=== PATIENT | female | born 2000 | race Caucasian/White ===

== ENCOUNTER → 2020-12-30 16:18 | Outpatient (BNVA) | payer OTHER, SELFPAY | PROVIDERS: Family Provider Nurse Practitioner Family; Visit Provider Emergency Medicine | DX: Z20.822 Contact with and (suspected) exposure to COVID-19 (principal); Z03.818 Encounter for observation for suspected exposure to other biological agents ruled out | CPT/HCPCS: 87635 ==

== ENCOUNTER 2021-01-04 10:32 | Emergency (ER) | payer MEDICAID, SELFPAY ==
[2021-01-04] VITALS (7 sets, daily range): BP systolic 112–123; BP diastolic 77–87; PULSE 85–127; RESP 16–18; TEMP 36.6–36.8; O2SAT 97–99; BMI 23.5
--- NOTE | 2021-01-04 10:47 | ED_ITS ---
HPI - General: Chief complaint: Vaginal Bleeding Stated complaint: EXCESSIVE VAGINAL BLEEDING, SUSPECTS MISCARRIAGE Time Seen by Provider: 01/04/21 10:41 History of Present Illness: HPI Narrative: 20 yo female arrives a chief complaint of vaginal bleeding. She had a light period in November and now is having what seems to be an extremely heavy period for her. She has not had any breast tenderness or swelling. She is taking tests which were negative. MD Complaint: vaginal bleeding Onset (ago): hour(s) Pain Consistency: intermittent Location: pelvis Severity: mild Quality: Cramping Relieving factors: none Exacerbating factors: none Vaginal bleeding: heavy Associated symptoms: Reports vaginal bleeding; Deny no associated symptoms, abdominal pain, dyspareunia, dysuria, headache(s), malaise, nausea, rash, seizures, short of breath, syncope, vaginal discharge, visual changes, vomiting or weakness Review of Systems Const: Denies: malaise ENMT: Denies: throat pain, ear or mastoid pain, nasal discharge or nasal congestion Card: Denies: syncope Resp: Denies: dyspnea, productive cough or non-productive cough GI: Denies: abdominal pain, nausea or vomiting : Denies: dysuria, vaginal discharge or dyspareunia Skin/Breast: Denies: rash or pruritus Neuro: Denies: headache(s) PFSH ED PFSH: Social History Smoking and tobacco status: never smoked Alcohol intake: never Physical Exam Const: COMMON NORMALS: no acute distress GENERAL APPEARANCE: cooperative and comfortable ORIENTATION/CONSCIOUSNESS: Yes awake, Yes oriented to person, Yes oriented to place and Yes oriented to time HENMT: COMMON NORMALS: normocephalic, atraumatic and hearing grossly normal bilaterally HEAD & SCALP: normocephalic and atraumatic Neck/C-Spine: COMMON NORMALS: no JVD Resp: COMMON NORMALS: normal respiratory effort, No retractions, No use of accessory muscles and clear to auscultation bilaterally AUSCULTATION: clear to auscultation bilaterally Cardio: COMMON NORMALS: no JVD, regular rate, regular rhythm and No murmurs present (Cardio) RATE: regular rate RHYTHM: regular rhythm GI: COMMON NORMALS: Soft to palpation and No hepatosplenomegaly present A USCULTATION: Yes normoactive bowel sounds PALPATION: Yes Soft to palpation, No Tenderness to palpation present (GI), No Guarding due to palpation present (GI) and Yes No hepatosplenomegaly present : SPECULUM EXAM - VAGINA: Yes vaginal bleeding OB/EXTERNAL & SPECULUM: vaginal bleeding Extremity: COMMON NORMALS: normal to inspection, capillary refill normal, no clubbing, cyanosis or edema, no calf tenderness and no pedal edema Neuro: SENSORIUM/ORIENTATION: Yes oriented to person, Yes oriented to place and Yes oriented to time Skin: COMMON NORMALS: no rashes or lesions noted GENERAL SKIN EXAM: no rashes or lesions noted Course Vital Signs: Vital signs: Vital Signs Temperature 97.9 F 01/04/21 13:07 Pulse Rate 86 01/04/21 13:07 Respiratory Rate 18 01/04/21 13:07 Blood Pressure 112/77 01/04/21 13:07 Pulse Oximetry 98 01/04/21 13:07 MDM - OB/Uterine Contractions MDM Narrative: Medical decision making narrative: Beta-hCG 0.5. We will put the patient on medroxyprogesterone withdrawal bleed did advise her that when she finishes the production prasterone she will start bleeding again fairly heavily. If bleeding is not stopped in the next couple days or becomes increased recheck. Lab Data: Labs: Lab Results 01/04/21 01/04/21 01/04/21 Range/Units 11:12 11:12 11:12 WBC 5.8 (4.0-10.0) 10^3/ uL RBC 5.21 (4.1-5.3) 10^6/u L Hgb 12.6 (11.5-15.3) g/dL Hct 41.0 (37.0-47.0) % MCV 78.7 L (81-99) fL MCH 24.2 L (28.0-34.0) pg MCHC 30.7 (30.0-36.0) g/dL RDW 13.0 (12.1-15.1) % Plt Count 235 (130-400) 10^3/c mm MPV 11.8 H (7.4-10.4) fL Neut % (Auto) 59.0 % Lymph % (Auto) 30.3 % [place] % (Auto) 6.6 % Eos % (Auto) 3.4 % Baso % (Auto) 0.2 % Neut # (Auto) 3.42 (1.8-7.7) 10^3/u L Lymph # (Auto) 1.8 (0.8-4.8) 10^3/u L [place] # (Auto) 0.4 (0.2-0.9) 10^3/u L Eos # (Auto) 0.2 (0.0-0.8) 10^3/u L Baso # (Auto) 0.0 (0.0-0.1) 10^3/u L Nucleated RBC % (a uto) 0 % Nucleated RBCs # 0.0 /100WBC Sodium 138 (136-145) mmol/L Potassium 3.8 (3.5-5.1) mmol/L Chloride 105 (98-107) mmol/L Carbon Dioxide 23 (22-29) mmol/L Anion Gap 13.8 (5-19) BUN 13 (6-20) mg/dL Creatinine 1.0 H (0.5-0.9) mg/dL GFR Calculation 69.3 L (90-130) mL/min Glucose 88 (65-115) mg/dL Calculated Osmolal ity 286 (285-295) mOsm/k g Calcium 9.0 (8.5-10.5) mg/dL Total Bilirubin 0.3 (0.15-1.2) mg/dL AST 17 (0-32) U/L ALT 16 (0-33) U/L Alkaline Phosphata se 54 (35-105) IU/L Total Protein 7.3 (6.6-8.7) g/dL Albumin 4.3 (3.5-5.2) g/dL Globulin 3.0 (1.3-4.6) g/dL Ser , Lesvia i-Qnt 0.50 mIU/mL Urine Color (Yellow) Urine Appearance (CLEAR) Urine pH (5-7) Ur Specific Gravit y (1.005-1.030) Urine Protein (Negative) Urine Glucose (UA) (Normal) Urine Ketones (Negative) Urine Blood (Negative) Urine Nitrate (Negative) Urine Bilirubin (Negative) Urine Urobilinogen (Negative) mg/dL Ur Leukocyte Rosalba ase (Negative) Urine RBC (0-2) /hpf Urine WBC (0-5) /hpf Ur Squamous Epith Cells (0-5) /hpf Amorphous Sediment Urine Bacteria (NONE) /hpf Urine Mucus /hpf Blood Type A Negative Rho(D) Type Negative 01/04/21 Range/Units 11:55 WBC (4.0-10.0) 10^3/ uL RBC (4.1-5.3) 10^6/u L Hgb (11.5-15.3) g/dL Hct (37.0-47.0) % MCV (81-99) fL MCH (28.0-34.0) pg MCHC (30.0-36.0) g/dL RDW (12.1-15.1) % Plt Count (130-400) 10^3/c mm MPV (7.4-10.4) fL Neut % (Auto) % Lymph % (Auto) % [place] % (Auto) % Eos % (Auto) % Baso % (Auto) % Neut # (Auto) (1.8-7.7) 10^3/u L Lymph # (Auto) (0.8-4.8) 10^3/u L [place] # (Auto) (0.2-0.9) 10^3/u L Eos # (Auto) (0.0-0.8) 10^3/u L Baso # (Auto) (0.0-0.1) 10^3/u L Nucleated RBC % (a uto) % Nucleated RBCs # /100WBC Sodium (136-145) mmol/L Potassium (3.5-5.1) mmol/L Chloride (98-107) mmol/L Carbon Dioxide (22-29) mmol/L Anion Gap (5-19) BUN (6-20) mg/dL Creatinine (0.5-0.9) mg/dL GFR Calculation (90-130) mL/min Glucose (65-115) mg/dL Calculated Osmolal ity (285-295) mOsm/k g Calcium (8.5-10.5) mg/dL Total Bilirubin (0.15-1.2) mg/dL AST (0-32) U/L ALT (0-33) U/L Alkaline Phosphata se (35-105) IU/L Total Protein (6.6-8.7) g/dL Albumin (3.5-5.2) g/dL Globulin (1.3-4.6) g/dL Ser , Lesvia i-Qnt mIU/mL Urine Color Yellow (Yellow) Urine Appearance Clear (CLEAR) Urine pH 5 (5-7) Ur Specific Gravit y 1.025 (1.005-1.030) Urine Protein Trace (Negative) Urine Glucose (UA) Norm (Normal) Urine Ketones Negative (Negative) Urine Blood 2+ H (Negative) Urine Nitrate Negative (Negative) Urine Bilirubin Neg (Negative) Urine Urobilinogen Norm (Negative) mg/dL Ur Leukocyte Rosalba ase Negative (Negative) Urine RBC 0-4 H (0-2) /hpf Urine WBC 0-4 H (0-5) /hpf Ur Squamous Epith Cells 5-10 H (0-5) /hpf Amorphous Sediment Not Reportable Urine Bacteria Trace (NONE) /hpf Urine Mucus 1+ /hpf Blood Type Rho(D) Type Discharge Plan Discharge Patient Disposition: Home Clinical Impression: Menometrorrhagia Condition: Stable Prescriptions: New medroxyprogesterone 10 mg tablet 10 mg PO DAILY 10 Days RF: 0 No Action IBU 800 mg tablet 800 mg PO TID PRN (Reason: pain) Qty: 30 RF: 0 Discharge Orders: Discharge ED (Routine); Ordered 01/04/21 Ordered By: Chi Padilla Discharge Diet: Usual diet Discharge Activity: Increase activity as tolerated Activity Restrictions/Additional Instructions: Check with your primary care doctor next week if not improving. Turn if further problems. Coding Level of Care Code ED Athletic Equipment Manager for Rica Ramon
[2021-01-04 11:25] LABS: Basophils % 0.2 %; Eosinophils # 0.2 10^3/uL (0.0-0.8); Eosinophils % 3.4 %; Hemoglobin 12.6 g/dL (11.5-15.3); Lymphocytes # 1.8 10^3/uL (0.8-4.8); Lymphocytes % 30.3 %; Mean Corpuscular HGB Conc 30.7 g/dL (30.0-36.0); Mean Corpuscular Hemoglobin 24.2 pg (28.0-34.0); Mean Corpuscular Volume 78.7 fL (81-99); Mean Platelet Volume 11.8 fL (7.4-10.4); Monocytes # 0.4 10^3/uL (0.2-0.9); Monocytes % 6.6 %; Neutrophils # 3.42 10^3/uL (1.8-7.7); Nucleated Red Blood Cells % 0 %; Platelet Count 235 10^3/cmm (130-400); Red Blood Count 5.21 10^6/uL (4.1-5.3); White Blood Count 5.8 10^3/uL (4.0-10.0)
[2021-01-04 12:06] LABS: Alanine Aminotransferase 16 U/L (0-33); Albumin Level 4.3 g/dL (3.5-5.2); Alkaline Phosphatase 54 IU/L (35-105); Anion Gap 13.8 (5-19); Aspartate Amino Transferase 17 U/L (0-32); Blood Urea Nitrogen 13 mg/dL (6-20); Carbon Dioxide 23 mmol/L (22-29); Chloride 105 mmol/L (98-107); Glomerular Filtration Rate 69.3 mL/min (90-130); Glucose 88 mg/dL (65-115); Osmolality Calculated 286 mOsm/kg (285-295); Potassium 3.8 mmol/L (3.5-5.1); Sodium 138 mmol/L (136-145); Total Bilirubin 0.3 mg/dL (0.15-1.2); Total Protein 7.3 g/dL (6.6-8.7)
[2021-01-04 12:14] LABS: Add Urine Microscopic? YES; Bilirubin Urine Neg (Negative); Blood Urine 2+ (Negative); Glucose Urine UA Norm (Normal); Ketones Urine Negative (Negative); Leukocyte Esterase Urine Negative (Negative); Nitrate Urine Negative (Negative); Protein Urine Trace (Negative); Specific Gravity, Urine 1.025 (1.005-1.030); Urine Appearance Clear (CLEAR); Urine Color Yellow (Yellow); Urobilinogen Urine Norm (Negative); pH Urine 5 (5-7)
[2021-01-04 12:15] LABS: Bacteria Urine TRACE /hpf; Mucus Urine 1+ /hpf
[2021-01-04 12:17] LABS: Add Urine Culture? No; RBC Urine 0-4 /hpf (0-2); WBC Urine 0-4 /hpf (0-5)
== END 2021-01-04 13:11 | disposition home or self-care (01) ==
PROVIDERS: Emergency Provider Family Medicine
DX: N92.1 Excessive and frequent menstruation with irregular cycle (principal)
CPT/HCPCS: 12345; 80053; 81001; 84702; 85025; 86900; 99283

== ENCOUNTER 2021-01-04 21:58 | Emergency (ER) | payer MEDICAID, SELFPAY ==
[2021-01-04 22:02] VITALS: BP 153/96; PULSE 92; RESP 15; TEMP 36.4; BMI 24.2
--- NOTE | 2021-01-04 22:41 | ED_ITS ---
HPI - Female Genitourinary General: Chief complaint: Vaginal Bleeding Stated complaint: covid +/ here for vaginal bleeding Time Seen by Provider: 01/04/21 22:12 Source: patient Mode of arrival: ambulatory Limitations: no limitations History of Present Illness: HPI Narrative: 20-year-old female patient presents to the emergency department with complaints of continued menorrhagia and dysmenorrhea. She was seen in the emergency department earlier today, diagnosed with menorrhagia, medroxyprogesterone prescribed, she states has not taken medication. She reports copper IUD placement while in [place] approximately 1 year ago. States has made a follow-up appointment with [facility] [employer], appointment is scheduled for next Thursday. She reports continued bleeding, states going through 3-4 pads an hour, states also bleeding through tampons. Last menstrual period; today, previous menstrual period 12/14/2020; she reports has never experienced irregular menstrual cycles in the past. She reports family history, her mother and sister with endometriosis. MD elicited complaint: vaginal bleeding Pertinent past history: IUD Onset (ago): day(s) (1) Location of symptoms: suprapubic Severity: severe Female Urogenital Radiation: Suprapubic Severity scale (1-10): 7 Quality of pain: cramping Consistency: intermittent and progressively worsening Vaginal bleeding: # pads per hour (3-4) Associated symptoms: Reports no associated symptoms; Deny abdominal pain, headache(s) or nausea Sexual activity: Yes Patient : No Date of Last Menstrual Period: 01/04/21 Review of Systems General: Reports: 10 or more systems reviewed and unremarkable except in HPI and below Const: Denies: fever(s), chills or diaphoresis Eyes: Denies: blurry vision or eye redness ENMT: Denies: throat pain, dental pain or disequilibrium Card: Denies: chest pain, palpitations or irregular heart rhythm Resp: Denies: dyspnea, productive cough, non-productive cough or wheezing GI: Denies: abdominal pain, nausea or vomiting : Reports: vaginal bleeding, dysmenorrhea, irregular period and change in menstrual flow; Denies: difficulty voiding, dysuria, urinary urgency or urinary hesitancy Musc: Denies: neck pain, back pain, joint pain, joint stiffness or muscle weakness Skin/Breast: Denies: rash or pruritus Neuro: Denies: headache(s), weakness in extremities or behavioral changes Psych: Denies: anxiety, depression, sleeping more or irritability Oscar/Lymph: Denies: easy bruising PFSH ED PFSH: Social History Smoking and tobacco status: never smoked Alcohol intake: never Female Reproductive History: Date of last menstrual period: 01/04/21 Physical Exam Const: COMMON NORMALS: no acute distress, patient oriented x3, healthy appearing, alert and well nourished GENERAL APPEARANCE: cooperative, comfortable, well kempt, well developed and well hydrated NUTRITIONAL APPEARANCE: thin ORIENTATION/CONSCIOUSNESS: Yes awake, Yes oriented to person, Yes oriented to place and Yes oriented to time HENMT: COMMON NORMALS: normocephalic, Normal external nose present and moist oral mucous membranes HEAD & SCALP: normocephalic NOSE: Normal external nose present Eye: COMMON NORMALS: Equal, round and reactive pupils present and EOMs intact bilaterally GENERAL EYE: appearance normal, both eyes and all related structures PUPIL: Yes Equal, round and reactive pupils present Neck/C-Spine: COMMON NORMALS: full ROM and no lymphadenopathy GENERAL: Yes normal visual inspection and Yes trachea midline CERVICAL SPINE: Yes cervical ROM normal Lymph: LYMPHATIC: no lymphadenopathy noted Chest: COMMONS NORMALS: normal inspection of the chest and normal palpation of entire chest wall Resp: COMMON NORMALS: normal respiratory effort, No retractions and clear to auscultation bilaterally EFFORT & INSPECTION: Yes able to speak in complete sentences, No labored, No Actively coughing and No audible wheezes AUSCULTATION: clear to auscultation bilaterally Cardio: COMMON NORMALS: regular rate, regular rhythm, S1 normal heart sound present, S2 normal heart sound present and Peripheral pulses 2+ throughout RATE: regular rate RHYTHM: regular rhythm HEART SOUNDS: S1 normal heart sound present and S2 normal heart sound present PERIPHERAL PULSES: Peripheral pulses 2+ throughout GI: COMMON NORMALS: Normal to inspection, nondistended, normoactive bowel sounds present, Soft to palpation and non-tender INSPECTION: Yes normal to inspection, No abdominal wall ecchymosis and No central obesity PALPATION: Yes Soft to palpation RECTAL EXAM: other (Tenderness over suprapubic area) : COMMON NORMALS: Yes no CVA tenderness BLADDER/KIDNEY EXAM: Yes no CVA tenderness Back/Pelvis: COMMON NORMALS: no CVA tenderness and thoracic and lumbar spine normal to inspection Extremity: COMMON NORMALS: normal to inspection and capillary refill normal Neuro: COMMON NORMALS: patient oriented x3 and no focal motor deficits SENSORIUM/ORIENTATION: Yes alert, Yes oriented to person, Yes oriented to place and Yes oriented to time Psych: COMMON NORMALS: mental status grossly normal, Normal thought process present and cooperative APPEARANCE: Yes well kempt ACTIVITY/MOTOR BEHAVIOR: Yes appropriate eye contact THOUGHT PROCESS: Normal thought process present Skin: COMMON NORMALS: no rashes or lesions noted and turgor normal GENERAL SKIN EXAM: no rashes or lesions noted and turgor normal Course Vital Signs: Vital signs: Vital Signs Temperature 97.6 F 01/04/21 22:02 Pulse Rate 86 01/05/21 00:46 Respiratory Rate 18 01/05/21 00:46 Blood Pressure 117/76 01/05/21 00:46 Pulse Oximetry 99 01/05/21 00:46 MDM - Female MDM Narrative: Medical decision making narrative: 20-year-old female patient presents to the emergency department with same complaint she reported earlier in the day. She continues with vaginal bleeding, has not increased. Reports started her menstrual cycle today, concern was menstrual cycles have never been abnormal nor irregular. She reported family history of endometriosis, her mother. She has upcoming appointment with gynecology next week. Hemoglobin remained stable, orthostatic vital signs slightly positive with heart rate increased slightly upon standing. 1 L of saline was administered, progesterone p.o. administered for vaginal bleeding. Coags within normal limits, hCG noted to be negative from earlier visit. I discussed possibility of endometriosis - advised progesterone will help with bleeding, ibuprofen did help with menstrual pain with prescription provided. Lab Data: Labs: Lab Results 01/04/21 01/04/21 Range/Units 22:30 22:30 WBC 6.2 (4.0-10.0) 10^3/ uL RBC 5.08 (4.1-5.3) 10^6/u L Hgb 12.2 (11.5-15.3) g/dL Hct 39.8 (37.0-47.0) % MCV 78.3 L (81-99) fL MCH 24.0 L (28.0-34.0) pg MCHC 30.7 (30.0-36.0) g/dL RDW 13.0 (12.1-15.1) % Plt Count 249 (130-400) 10^3/c mm MPV 11.8 H (7.4-10.4) fL Neut % (Auto) 42.4 % Lymph % (Auto) 46.3 % [place] % (Auto) 6.8 % Eos % (Auto) 4.1 % Baso % (Auto) 0.2 % Neut # (Auto) 2.61 (1.8-7.7) 10^3/u L Lymph # (Auto) 2.9 (0.8-4.8) 10^3/u L [place] # (Auto) 0.4 (0.2-0.9) 10^3/u L Eos # (Auto) 0.3 (0.0-0.8) 10^3/u L Baso # (Auto) 0.0 (0.0-0.1) 10^3/u L Nucleated RBC % (a uto) 0 % Nucleated RBCs # 0.0 /100WBC PT 13.30 (12.1-14.9) SECO NDS INR 0.98 (0.8-1.2) APTT 29.7 (23.9-36.7) SECO NDS Discharge Plan Discharge Patient Disposition: Home Clinical Impression: Menometrorrhagia, Dysmenorrhea Condition: Stable Prescriptions: New IBU 800 mg tablet 800 mg PO TID PRN (Reason: pain) Qty: 30 RF: 0 No Action medroxyprogesterone 10 mg tablet 10 mg PO DAILY 10 Days RF: 0 Discharge Orders: Discharge ED (Routine); Ordered 01/04/21 Ordered By: Jasmina Maya Discharge Diet: Usual diet Discharge Activity: Resume usual activity Patient Instructions: Dysmenorrhea (ED), Abdominal Pain (ED), Menorrhagia (ED) Activity Restrictions/Additional Instructions: Follow-up with your electrical plumbing supervisor next week as scheduled Continue progesterone as prescribed for 10 days Return to the emergency department if you develop lightheadedness, increased b leeding, feeling you are going to pass out Push fluids, stay hydrated Coding Level of Care Code ED Side Show Entertainer for Chg Fwd Exam Comprehensive
[2021-01-04 22:44] LABS: Basophils % 0.2 %; Eosinophils # 0.3 10^3/uL (0.0-0.8); Eosinophils % 4.1 %; Hematocrit 39.8 % (37.0-47.0); Hemoglobin 12.2 g/dL (11.5-15.3); Lymphocytes # 2.9 10^3/uL (0.8-4.8); Lymphocytes % 46.3 %; Mean Corpuscular HGB Conc 30.7 g/dL (30.0-36.0); Mean Corpuscular Volume 78.3 fL (81-99); Mean Platelet Volume 11.8 fL (7.4-10.4); Monocytes # 0.4 10^3/uL (0.2-0.9); Monocytes % 6.8 %; Neutrophils # 2.61 10^3/uL (1.8-7.7); Neutrophils % 42.4 %; Nucleated Red Blood Cells % 0 %; Platelet Count 249 10^3/cmm (130-400); Red Blood Count 5.08 10^6/uL (4.1-5.3); White Blood Count 6.2 10^3/uL (4.0-10.0)
[2021-01-04 23:06] LABS: INR 0.98 (0.8-1.2)
[2021-01-04 23:07] LABS: Partial Thromboplastin Time 29.7 SECONDS (23.9-36.7)
[2021-01-04] MEDS: ibuprofen 800 mg tablet PO (23:11)
[2021-01-04] MEDS: medroxyprogesterone 2.5 mg Tablet 10 MG PO (23:44)
[2021-01-04 23:45] VITALS: BP 104/61; BP 106/71; BP 113/75; PULSE 109; PULSE 79; PULSE 87
[2021-01-05] MEDS: sodium chloride 0.9% 500 ML 999 ML IV (00:10)
[2021-01-05 00:46] VITALS: BP 117/76; PULSE 86; RESP 18; O2SAT 99
== END 2021-01-05 00:46 | disposition home or self-care (01) ==
PROVIDERS: Emergency Provider Nurse Practitioner Family
DX: N92.1 Excessive and frequent menstruation with irregular cycle (principal); N94.6 Dysmenorrhea, unspecified
CPT/HCPCS: 12345; 85025; 85610; 85730; 96360; 99281; 99283; J7040

== ENCOUNTER 2021-07-13 12:40 | Outpatient (CLI) | payer MEDICAID, SELFPAY ==
[2021-07-13] VITALS (11 sets, daily range): BP systolic 104–115; BP diastolic 56–73; PULSE 77–100; RESP 16; TEMP 36.5; BMI 26.9
[2021-07-13] MEDS: acetaminophen 325 mg Tablet 650 MG PO (13:32)
[2021-07-13 14:32] LABS: Bilirubin Urine Neg (Negative); Blood Urine 3+ (Negative); Glucose Urine UA Norm (Normal); Ketones Urine Negative (Negative); Nitrate Urine Negative (Negative); Protein Urine Neg (Negative); Urine Appearance Clear (CLEAR); Urine Color Straw (Yellow); pH Urine 5 (5-7)
[2021-07-13 14:33] LABS: Bacteria Urine TRACE /hpf; Leukocyte Esterase Urine Negative (Negative); Squamous Epithelial Cell Urine 0-4 /hpf (0-5); Urobilinogen Urine Norm (Negative); WBC Urine RARE /hpf (0-5)
[2021-07-13 14:34] LABS: Add Urine Culture? Yes
== END 2021-07-13 15:15 | disposition home or self-care (01) ==
LOC: OPOB 12:45 → OBGYN 12:46
PROVIDERS: Visit Provider Family Medicine
DX: O46.90 Antepartum hemorrhage, unspecified, unspecified trimester (principal); Z3A.00 Weeks of gestation of pregnancy not specified; R10.9 Unspecified abdominal pain
CPT/HCPCS: 81001; 87086; 99211

== ENCOUNTER 2021-10-14 18:25 | Outpatient (CLI) | payer MEDICAID, SELFPAY ==
[2021-10-14 19:06] VITALS: BP 115/52; PULSE 95
[2021-10-14 19:19] VITALS: BMI 30.7
[2021-10-14 19:21] VITALS: RESP 16
[2021-10-14 19:26] VITALS: BP 92/50; PULSE 95
[2021-10-14 19:31] VITALS: BP 92/50; PULSE 95; RESP 16
[2021-10-14] MEDS: cyclobenzaprine 10 mg Tablet PO (19:39)
[2021-10-14] MEDS: HYDROcodone-acetaminophen 5-325 mg Tablet 2 TAB PO (19:39)
== END 2021-10-14 19:50 | disposition home or self-care (01) ==
LOC: OPOB 18:33 → OBGYN 18:34
PROVIDERS: Visit Provider Family Medicine
DX: O99.891 Other specified diseases and conditions complicating pregnancy (principal); M53.3 Sacrococcygeal disorders, not elsewhere classified
CPT/HCPCS: 59025; 99211

== ENCOUNTER 2021-11-08 19:55 | Inpatient (IN) | payer MEDICAID, SELFPAY ==
[2021-11-08 20:26] VITALS: BP 111/61; PULSE 93
[2021-11-08 20:52] VITALS: BMI 30.7
[2021-11-08 21:13] LABS: Basophils % 0.2 %; Eosinophils # 0.1 10^3/uL (0.0-0.8); Eosinophils % 0.5 %; Hematocrit 32.1 % (37.0-47.0); Lymphocytes # 2.4 10^3/uL (0.8-4.8); Lymphocytes % 20.9 %; Mean Corpuscular HGB Conc 31.2 g/dL (30.0-36.0); Mean Corpuscular Hemoglobin 23.9 pg (28.0-34.0); Mean Corpuscular Volume 76.8 fl (81-99); Mean Platelet Volume 12.8 fL (7.4-10.4); Monocytes # 0.7 10^3/uL (0.2-0.9); Monocytes % 5.9 %; Neutrophils # 8.14 10^3/uL (1.8-7.7); Nucleated Red Blood Cells % 0.2 %; Platelet Count 189 10^3/cmm (130-400); Red Blood Count 4.18 10^6/uL (4.1-5.3); Red Cell Distribution Width 14.3 % (12.1-15.1); White Blood Count 11.3 10^3/uL (4.0-10.0)
[2021-11-08] MEDS: miSOPROStol 100 mcg tablet 25 MCG VAGINAL (21:45)
[2021-11-08 22:22] VITALS: BP 115/69; PULSE 100
[2021-11-09] VITALS (101 sets, daily range): BP systolic 94–142; BP diastolic 53–84; PULSE 69–226; RESP 15–18; TEMP 36.4–36.9; O2SAT 84–100
[2021-11-09] MEDS: fentaNYL 50 mcg/mL INJ 2mL IVP ×4 (03:07→10:39)
[2021-11-09] MEDS: lactated ringers 1,000 ML 999 ML IV ×3 (03:29→10:46)
--- NOTE | 2021-11-09 08:14 | P.ANESASSM_ITS ---
Pre-Anesthetic Assessment Pre-Anesthetic Assessment: Height/Weight: Height 1.68 m Weight 86.183 kg Pulse Resp BP 82 17 110/70 11/09/21 06:12 11/09/21 07:18 11/09/21 06:12 Preop Diagnosis: labor Proposed Procedure: epidural Was Beta [place] taken within 24 hours: N/A Was Clonidine taken within 24 hours: N/A Last Intake: 19:00 Social: Social History: No alcohol and No tobacco Exam: Pre-Anes Outpt Exam: alert, oriented x 3, clear to auscultation bilaterally and regular rate & rhythm Airway: Submandibular: WNL Cervical ROM: WNL MP: 2 Dentition: Full Pulmonary: Pulmonary: None reported CV/HEM: CV/HEM: None reported : : None reported Hepatic: Hepatic: None reported GI: GI: GERD () Metabolic: Metabolic: None reported Musc/skel: Musc/skel: None reported Neuropsych: Neuropsych: None reported Anesthetic Plan: ASA status: 2 Anesthesia: Regional (specify below) (epidural) Risk of > 500 ml blood loss (7ml/kg in children): No Meds/Allergies Current Medications: Current Medications Generic Name Dose Route Start Last Admin Trade Name Freq PRN Reason Stop Dose Admin Fentanyl 25 - 100 mcg 11/08/21 20:46 11/09/21 07:18 Fentanyl 50 Mcg/ Ml Inj 2ml IVP 50 mcg Q1H PRN Administration SEVERE PAIN Lactated Ringer's 1,000 mls @ 999 m ls/hr 11/08/21 20:46 11/09/21 07:19 Lactated Ringers IV 999 mls/hr .Q1H1M PRN Administration See label comment s Lactated Ringer's 1,000 mls @ 999 m ls/hr 11/08/21 20:46 11/09/21 07:23 Lactated Ringers IV Infused .Q1H1M PRN Infusion Per L&D Rescitati on Protocol [facility] Anesthesia PFSH: Family History (Updated 01/11/21 @ 12:19 by Yuliya Snider LPN) Grandmother Diabetes maternal Family/Other Diabetes maternal uncle Mother Ovarian cyst Denies family history of CAD (coronary artery disease) Hyperlipidemia Chronic kidney disease (CKD) Anesthesia complication Bleeding disorder Cancer Hypertension Social History (Updated 01/11/21 @ 12:20 by Yuliya Tylor, REAL ESTATE COORDINATOR) Smoking and tobacco status: never smoked Alcohol intake: never Female Reproductive History: Date of last menstrual period: 01/04/21 : 2 Data Anesthesia CBC & Chem 7: 11/08/21 21:00 Other Labs: Laboratory Results - last 48 hr 11/08/21 21:00 WBC 11.3 H RBC 4.18 Hgb 10.0 L Hct 32.1 L MCV 76.8 L MCH 23.9 L MCHC 31.2 RDW 14.3 Plt Count 189 MPV 12.8 H Neut % (Auto) 72.0 Lymph % (Auto) 20.9 [place] % (Auto) 5.9 Eos % (Auto) 0.5 Baso % (Auto) 0.2 Neut # (Auto) 8.14 H Lymph # (Auto) 2.4 [place] # (Auto) 0.7 Eos # (Auto) 0.1 Baso # (Auto) 0.0 Nucleated RBC % (auto) 0.2 Nucleated RBCs # 0.0 Cardiac Studies: No Data to Display
[2021-11-09] MEDS: dextrose 5%-lactated ringers 1,000 ML 500 ML IV (08:25)
--- NOTE | 2021-11-09 09:16 | ANES.PROC ---
Anesthesia Procedures Procedure/Date: 11/09/21 Epidural: Time Out Performed: Yes Consents Signed: Procedure Consent Consent: requested by attending/covering physician, from patient, risks and benefits reviewed and patient agrees to proceed Lumbar Level: L3-L4 Epidural position: sitting Epidural procedure: sterile prep of area (betadine), 1% lidocaine to numb the area (3), 18 g needle, neg for paresthesia, test dose given, 1.5% xylocaine 1:200k epi (3/2ml dose), 0.2% Ropivacaine bolus ml (5ml), placed PCEA, no systemic response, sterile dressing applied, L.U.D. no apparent complications and 0.2% Ropiavacaine @ mls/hr (13ml/hr)
--- NOTE | 2021-11-09 09:37 | PM.OPHPUD ---
Labor & Delivery H&P Update Date of Procedure: November 09, 2021 Date H&P Performed: 11/04/21 H&P update information: I have reviewed H&P completed within last 30 days, I have examined patient prior to procedure and Changes to prior documentation as noted here (Patient came in last night forMisoprostel cervical ripening.She has now 3 to 4 cm dilated and just performed artificial rupture membranes.She is comfortable now after epidural anesthesia.) Admission Diagnosis: Preop diagnosis: labor Primary indication for procedure: Term . Planned procedure: Spontaneous vaginal delivery.
--- NOTE | 2021-11-09 10:29 | PC.NURSE ---
OBINNA DIAZ CALLED BACK TO ASSESS EPIDURAL. PT STATES NO LONGER FEELING ANY RELIEF. CERVIX 4-5CM, POSTERIOR
--- NOTE | 2021-11-09 11:32 | P.ANES_ITS ---
Documented by User: Elmer Martinez Jr, PHOTO PRODUCER 11/09/21 11:39 Anesthesia Procedures Procedure/Date: 11/09/21 Procedure Narrative: Pt CO pain and no longer comfortable. epidural catheter noted to be pulled back. D/cd epidural with tip intact. Epidural: Time Out Performed: Yes Consents Signed: Procedure Consent Consent: requested by attending/covering physician, from patient, risks and benefits reviewed and patient agrees to proceed Lumbar Level: L3-L4 Epidural position: sitting Epidural procedure: sterile prep of area (betadine), 1% lidocaine to numb the area (3ml), 18 g needle, neg for paresthesia, test dose given, 1.5% xylocaine 1:200k epi (3/2ml doses), 0.2% Ropivacaine bolus ml (5ml), placed PCEA, no systemic response, sterile dressing applied, L.U.D. no apparent complications and 0.2% Ropiavacaine @ mls/hr (13/ml/hr) Documented by User: Lucia Escobar 11/10/21 07:48 Anesthesia Procedures Procedure/Date: 11/10/21
[2021-11-09] MEDS: miSOPROStol 200 mcg Tablet 800 MCG PR (13:47)
[2021-11-09] MEDS: oxytocin 30 UNIT/500 ML BAG 600 UNIT IV (13:47)
--- NOTE | 2021-11-09 13:55 | P.PCNOB_ITS ---
Delivery Note: Date of delivery: November 09, 2021 Pre-Delivery Course: This 21-year-old 2 now para 2 female had no major concerns or problems throughout her course. Maternal blood type was O negative with negative antibodies. Rubella was immune and group B strep was negative. Covid was also negative. At 39 weeks and 2 days gestation decision was made in discussion with the patient secondary to her severe discomfort to bring the patient in for misoprostel cervical ripening. Delivery: This patient was admitted yesterday evening for misoprostel cervical ripening. She was given 1 dose of misoprostel and contractions ensued and therefore a second dose was not given. This morning she was approximately 2-1/2 to 3 cm dilated and underwent artificial rupture membranes shortly after an epid ural was placed. She slowly dilated throughout the morning into the early afternoon and then rapidly dilated to complete her cervical dilatation. Epidural was replaced secondary to not working real well and she still had loss of pain and pressure. However, she dilated to completion with dilatation and delivered by spontaneous vaginal livery a 8 pound 0 ounce male infant at 1336. There was no episiotomy and just a minimal first-degree perineal laceration which did not require repair. There was a nuchal cord x2. After delivery, the was suctioned at the perineum followed by suctioning immediately after . The infant was then placed on mother's abdomen where after approximately 1 minute the 's umbilical cord was clamped and then cut by the 's father. Umbilical cord had 3 blood vessels. Infant Apgars were 7 and 9 at 1 and 5 minutes respectively. She had a somewhat atonic uterus which was bleeding some in spite of fundal massage and therefore she was given 800 mcg of misoprostel rectally. Presently mother and are doing well and will be followed for routine postdelivery care. The was 39 weeks and 3 days gestation at delivery. Estimated blood loss approximately 316 mL. Post-Delivery Status: Patient is doing well and will be followed for routine postdelivery care. History History History 1 Term 1 Miscarriages/Ectopic 0 0 Living Children 1 A&P Assessment and plan (1) Normal spontaneous vaginal delivery: Continue routine care. Monitor for any further bleeding or other issues. Status: Acute Coding Level of Care Code Acute Channel Lip Stiffener Insoles for g Fwd Diagnoses Normal spontaneous vaginal delivery O80
[2021-11-09] MEDS: ibuprofen 800 mg tablet PO ×2 (14:13→20:31)
[2021-11-09] MEDS: benzocaine-menthol 78 gm Canister 1 SPRAY TOPICAL (14:13)
[2021-11-09] MEDS: HYDROcodone-acetaminophen 5-325 mg Tablet PO ×2 (14:14→21:02)
--- NOTE | 2021-11-09 18:21 | PC.NURSE ---
pt ambulated to OB8. Oriented to room/call light. Proud parent pack discussed.
[2021-11-09] MEDS: docusate sodium 100 mg Capsule PO (18:41)
[2021-11-10 01:37] LABS: Hematocrit 24.6 % (37.0-47.0); Hemoglobin 7.6 g/dL (11.5-15.3); Mean Corpuscular HGB Conc 30.9 g/dL (30.0-36.0); Mean Corpuscular Hemoglobin 23.9 pg (28.0-34.0); Mean Corpuscular Volume 77.4 fl (81-99); Mean Platelet Volume 12.7 fL (7.4-10.4); Platelet Count 142 10^3/cmm (130-400); Red Blood Count 3.18 10^6/uL (4.1-5.3); Red Cell Distribution Width 14.1 % (12.1-15.1); White Blood Count 15.3 10^3/uL (4.0-10.0)
[2021-11-10 03:35] VITALS: BP 109/70; PULSE 71; TEMP 36.6; O2SAT 98
[2021-11-10] MEDS: HYDROcodone-acetaminophen 5-325 mg Tablet PO (05:01)
--- NOTE | 2021-11-10 07:48 | ANE.PACU2 ---
Inpatient post-anesthesia follow up: Airway intact: Yes Vital signs: Temperature 97.9 F Pulse Rate 71 Respiratory Rate 16 Blood Pressure 109/70 Pulse Oximetry 98 Oxygen Delivery Me thod Room Air Oxygen Flow Rate Fraction of Inspir ed Oxygen Hydration adequate: Yes Nausea and vomiting: No Pain level: 1 Mental status: Baseline
[2021-11-10 08:00] VITALS: BP 117/77; PULSE 72; TEMP 36.7
[2021-11-10] MEDS: ibuprofen 800 mg tablet PO ×2 (10:08→15:58)
[2021-11-10] MEDS: docusate sodium 100 mg Capsule PO (10:08)
[2021-11-10] MEDS: prenatal vitamin Capsule 1 CAP PO (10:09)
[2021-11-10 16:19] VITALS: BP 122/82; PULSE 78; TEMP 36.7; O2SAT 98
[2021-11-10 16:20] VITALS: BP 122/82; PULSE 78; RESP 18; TEMP 36.7; O2SAT 98
--- NOTE | 2021-11-27 08:17 | PM.OBGYDC ---
Discharge Providers CRM MARKETING MANAGER Date of Admission: 11/08/21 19:55 Date of Discharge: 11/10/21 Attending Provider at Admission: Nemesio Enriquez MD Attending Provider at Discharge: Nemesio Enriquez MD Diagnoses at Discharge Discharge Diagnosis (1) Normal spontaneous vaginal delivery: Status: Resolved Reason for Visit Reason for Visit: Induction Hospital Course Hospital Course This 21 year old G2 now P2 was admitted for induction of term using misoprostel. She delivered without problems a healthy infant. She has done well since delivery and is ambulating well and tolerating a regular diet without problems. The infant is feeding well. Information Peripartum Data: Delivery Method: Vaginal Physical Exam Const: COMMON NORMALS: no acute distress and well nourished Resp: COMMON NORMALS: normal respiratory effort and clear to auscultation bilaterally AUSCULTATION: clear to auscultation bilaterally Cardio: COMMON NORMALS: regular rate, regular rhythm and No murmurs present (Cardio) RATE: regular rate RHYTHM: regular rhythm GI: COMMON NORMALS: Normal to inspection, nondistended, normoactive bowel sounds present and non-tender (fundus is firm and well below the umbilicus.) : COMMON NORMALS: Yes no CVA tenderness BLADDER/KIDNEY EXAM: Yes no CVA tenderness Back/Pelvis: COMMON NORMALS: no CVA tenderness Extremity: COMMON NORMALS: normal to inspection, capillary refill normal, no calf tenderness and no pedal edema Neuro: COMMON NORMALS: no focal motor deficits and no sensory deficits noted Psych: COMMON NORMALS: mental status grossly normal Skin: COMMON NORMALS: no rashes or lesions noted GENERAL SKIN EXAM: no rashes or lesions noted Urinary Catheter Management^: [place] Latex: Cath Placed During This Visit: yes, but has since been removed by the nurse Reason for Continuing Indwelling Catheter: Decision to DC Catheter Urinary Catheter Date of Insertion: 11/09/21 Urinary Catheter Time of Insertion: 09:08 Date Urinary Catheter Removed: 11/09/21 Time Urinary Catheter Discontinued: 13:31 History History History 1 Term 1 Miscarriages/Ectopic 0 0 Living Children 1 Discharge Data Vitals: Last Vital Signs Temp 98.0 F 11/10/21 16:20 Pulse 78 11/10/21 16:20 Resp 18 11/10/21 16:20 BP 122/82 11/10/21 16:20 Pulse Ox 98 11/10/21 16:20 Discharge Plan Discharge Patient Disposition: Home Condition: Stable Prescriptions: New ibuprofen 800 mg Tablet 800 mg PO TID Qty: 90 RF: 1 docusate sodium 100 mg Capsule 100 mg PO BID Qty: 60 RF: 1 Continued ferrous sulfate 325 mg (65 mg iron) Capsule, Extended Release 325 mg PO BID RF: 0 prenat.vits,shashi,[id number] Tablet 1 tab PO DAILY RF: 0 Discharge Orders: Discharge Order (Routine); Ordered 11/10/21 Ordered By: Nemesio Enriquez Referrals: Nemesio Enriquez MD [Physician] - 12/17/21 2:00 pm Discharge Diet: Usual diet Discharge Activity: Resume usual activity Patient Instructions: Iron Supplements (By mouth), Vitamins (By mouth), Breast Care for the Non- Mother (GEN), OB Discharge Report, OB Food/Drug Interaction Guide, Opioid Safety, OB Home Care, OB Vaginal Deliveries, Abnormal Bleeding, Depression Activity Restrictions/Additional Instructions: Please call [facility] [phone] and make a appointment to be seen in 6 Weeks. Discharge Attestations CRM MARKETING MANAGER Time Spent in Discharge Care*: less than 30 min Specific Discharge Activities: Specific discharge activities: educating patient, documenting/other paperwork and evaluating patient/reviewing data Coding Level of Care Code Acute Petroleum Production Engineer for Chg Fwd Diagnoses Normal spontaneous vaginal delivery O80
== END 2021-11-10 16:35 | disposition home or self-care (01) | DRG 807 ==
PROVIDERS: Admitting Provider Family Medicine; Visit Provider Family Medicine
DX: O70.0 First degree perineal laceration during delivery (principal); Z37.0 Single live birth; Z3A.39 39 weeks gestation of pregnancy
CPT/HCPCS: 36415; 51702; 59025; 59409; 85025; 85027; 90471; 90686; 96374; 96376; 99211; J2795; J3010

== ENCOUNTER → 2021-12-20 10:36 | Outpatient (BNVA) | payer MEDICAID, SELFPAY | PROVIDERS: Visit Provider Obstetrics & Gynecology | DX: Z30.9 Encounter for contraceptive management, unspecified (principal) | CPT/HCPCS: 81025 ==

== ENCOUNTER → 2021-12-27 08:05 | Outpatient (BNVA) | payer MEDICAID, SELFPAY | PROVIDERS: Visit Provider Obstetrics & Gynecology | DX: Z30.9 Encounter for contraceptive management, unspecified (principal) | CPT/HCPCS: 81025 ==

== ENCOUNTER → 2022-02-24 11:00 | Outpatient (BNVA) | payer MEDICAID, SELFPAY | PROVIDERS: Visit Provider Obstetrics & Gynecology | DX: Z12.4 Encounter for screening for malignant neoplasm of cervix (principal); N94.89 Other specified conditions associated with female genital organs and menstrual cycle | CPT/HCPCS: 88175 ==

== ENCOUNTER → 2022-03-03 16:30 | Outpatient (BNVA) | payer MEDICAID, SELFPAY | PROVIDERS: Visit Provider Obstetrics & Gynecology | DX: L65.9 Nonscarring hair loss, unspecified (principal) | CPT/HCPCS: 84443 ==

== ENCOUNTER → 2022-06-26 13:44 | Outpatient (BNVA) | payer MEDICAID, SELFPAY | PROVIDERS: Visit Provider Obstetrics & Gynecology | DX: N94.89 Other specified conditions associated with female genital organs and menstrual cycle (principal) | CPT/HCPCS: 76830; 76856 ==

== ENCOUNTER → 2024-04-21 09:50 | Outpatient (BNVA) | payer BC, SELFPAY | PROVIDERS: Visit Provider Nurse Practitioner Women's Health | DX: R10.2 Pelvic and perineal pain (principal); N92.1 Excessive and frequent menstruation with irregular cycle; Z97.5 Presence of (intrauterine) contraceptive device; R63.5 Abnormal weight gain; N93.9 Abnormal uterine and vaginal bleeding, unspecified; N92.6 Irregular menstruation, unspecified | CPT/HCPCS: 82670; 83001; 83002; 83520; 83525; 84403; 84443 ==